=== PATIENT | male | born 1950 | race Caucasian/White ===

== ENCOUNTER → 2024-12-28 08:00 | Outpatient (REF) | payer OTHER, SELFPAY ==
--- NOTE | 2024-12-28 10:06 | CARDSERVLU ---
Echocardiogram with Lumason completed after protocol screening completed. Allergies verified.
Patent IV site: _left AC____
IV site flushed with 0.9% NaCl pre and post administration.
Diluted bolus method utilized to enhance visualization of ventricular prabhakar.
Total volume given: _3.0___ mL
Patient tolerated all procedures well without complications.
#22 tigre placed left AC. Lumason given. INT d/c'd. pressure held. No bleeding noted.
== END ==
LOC: RCS 08:00
PROVIDERS: ATTENDING PHYSICIAN Internal Medicine Cardiovascular Disease; FAMILY PHYSICIAN Internal Medicine
DX: I05.0 Rheumatic mitral stenosis (principal)
CPT/HCPCS: 93306; Q9950